=== PATIENT | female | born 1985 | race Hispanic/Latino ===

== ENCOUNTER 2019-02-17 14:13 | Emergency (ER) | payer OTHER ==
[~2019-02-17] VITALS: Ht 157.5 cm; Wt 108.0 kg
[2019-02-17] MEDS ORDERED: VITAMIN D-32000 UNIT PO (14:30)
== END 2019-02-17 16:54 | disposition home or self-care (01) ==
LOC: ED 14:13
DX: R10.11 Right upper quadrant pain (principal); Z79.899 Other long term (current) drug therapy
CPT/HCPCS: 80053; 81001; 83690; 84703; 85025; 99284